=== PATIENT | female | born 1970 | race Caucasian/White ===

== ENCOUNTER 2019-05-02 09:30 | Inpatient (IN) | payer OTHER ==
[~2019-05-02] VITALS: Ht 154.9 cm; Wt 122.5 kg
[~2019-05-02 09:30] MED LIST: ASPIRIN81 M1 PO; CALCIO PO; CENTRUM SILVER1 EAC2 PO; INTEGRA CAPSUL1 EACH PO; LEVSIN/SL0.125 MG SL; NEURIN SL; PRILOSEC20 MG PO; ZINC LOZENGES1 EACH PO
[2019-05-07] MEDS ORDERED: ABANEU-SL TABL1 EACH SL (09:15)
[2019-05-07] MEDS ORDERED: CALCIUM500 M2 (09:19)
[2019-05-07] MEDS ORDERED: CYANOCOBAL1000 MCG/1 IJ (09:19)
[2019-05-09] MEDS ORDERED: ELIQUIS2.5 MG PO (13:47)
[2019-05-09] MEDS ORDERED: PERCOCET 5-3251 EACH PO (13:47)
[2019-05-09] MEDS ORDERED: DUI500 PO (13:47)
== END 2019-05-09 19:13 | DRG 470 ==
LOC: SURG 05-07 05:39 → O/R 05-07 05:39 → RECOVERY 05-07 09:30 → SURG 05-07 15:52
PROVIDERS: ADMIT Orthopaedic Surgery
PROC: 0MNN0ZZ Release Right Knee Bursa and Ligament, Open Approach (ICD-10-PCS; 2019-05-07)
PROC: 0SRC0JZ Replacement of Right Knee Joint with Synthetic Substitute, Open Approach (ICD-10-PCS; principal; 2019-05-07 09:45)
DX: M17.11 Unilateral primary osteoarthritis, right knee (principal); D62 Acute posthemorrhagic anemia; E66.01 Morbid (severe) obesity due to excess calories; M81.8 Other osteoporosis without current pathological fracture; Z98.84 Bariatric surgery status; Z68.35 Body mass index [BMI] 35.0-35.9, adult

== ENCOUNTER 2025-06-26 07:15 | Inpatient (IN) | payer OTHER ==
[~2025-06-26] VITALS: Ht 157.5 cm; Wt 99.8 kg
[~2025-06-26 07:15] MED LIST changes: +ABANEU-SL TABL1 EACH SL; +CALCIUM500 M2; +CYANOCOBAL1000 MCG/1 IJ; +DUI500 PO; +ELIQUIS2.5 MG PO; +PERCOCET 5-3251 EACH PO
[2025-06-26 08:18] LABS: BASO % 0.5 % (0.1-1.2); EOS # 0.17 (0.04-0.54); EOS % 4.6 % (0.7-7.0); LYMPH # 0.82 (1.18-3.74); LYMPH % 22.4 % (19.3-53.1); MEAN PLATELET VOLUME 13.50 fl (9.4-12.4); MONO # 0.27 (0.24-0.82); MONO % 7.4 % (4.7-12.5); NEUT # 2.37 (1.56-6.13); NEUT % 64.8 % (34.0-71.1); RED CELL DISTRIBUTION WIDTH 14.7 % (11.6-14.4)
[2025-06-26 08:24] VITALS: BP 145/90
[2025-06-26 08:41] LABS: URINE APPEARANCE Cloudy; URINE BILIRRUBIN Negative (NEGATIVE); URINE BLOOD Negative; URINE COLOR Yellow; URINE GLUCOSE Negative (NEGATIVE); URINE KETONE Negative (NEGATIVE); URINE LEUKOCYTE Negative; URINE NITRATE Negative; URINE PROTEIN Negative (NEGATIVE); URINE UROBILINOGEN 1.0 E.U./dl
[2025-06-26 08:43] LABS: URINE BACTERIA 414.0 uL (0.0-1933); URINE EPITHELIAL CELLS 7.3 uL (0.0-38.8); URINE WBC 4.1 uL (0.0-23.2)
[2025-06-26 08:44] LABS: COVID-19 AG NEGATIVE (NEGATIVE)
[2025-06-26 08:53] LABS: INR 0.99
[2025-06-26 08:55] LABS: URINE CAST 0.00 uL (0.0-1.40); URINE RBC 1.3 uL (0.0-20.8)
[2025-06-26 09:39] LABS: ALT/SGPT 27.0 U/L (12-78); AST/SGOT 19.0 U/L (15-37); BILIRUBIN TOTAL 0.5 mg/dL (0.3-1.2); BUN CREA RATIO 37.0 (7.0-25.0); CHOL HDL RATIO 2.2 (0-5.0); CREATININE SERUM 0.52 mg/dL (0.55-1.02); GFR 121.98; GLOBULINA 2.9 G/DL (2.4-3.5); GLUCOSE FASTING 91.0 mg/dL (65-100); HDL 52.0 mg/dl (40-60); LDL 51.0 mg/dl (0-130); OSMOLALITY SERUM 287.0 MOSM/KG (275-295); VLDL 9.0 (0-39)
[2025-06-26 11:23] LABS: RH POSITIVE
[2025-07-01] MEDS ORDERED: VANCOMYCIN HCL 1,000 MG VIAL IR ONE (11:15)
[2025-07-01] MEDS ORDERED: TRANEXAMIC ACID 100MG/1ML (1000MG) AMPUL IV ONE ×2 (11:15)
[2025-07-01] MEDS ORDERED: TRANEXAMIC ACID 100MG/1ML (1000MG) AMPUL ONE (12:33)
[2025-07-01] MEDS ORDERED: ISOPROPYL ALCOHOL 30 ML OUNCE TOP ONE (13:10)
[2025-07-01] MEDS ORDERED: VANCOMYCIN HCL 1,000 MG VIAL ONE (13:24)
[2025-07-01] MEDS ORDERED: KETOROLAC TROMETHAMINE 60 MG VIAL IM ONE (14:13)
[2025-07-01] MEDS ORDERED: POVIDONE-IODINE 118 ML BOTT TOP ONE (14:37)
[2025-07-01] MEDS ORDERED: MORPHINE SULFATE 4 MG/ML VIAL IV ONE ×4 (17:45→20:45)
[2025-07-01] MEDS ORDERED: ONDANSETRON HCL 2 MG/ML VIAL IV PRN (20:15)
[2025-07-01] MEDS ORDERED: SODIUM CHLORIDE 0.45 % 1,000 ML IV SCH (20:15)
[2025-07-01 21:46] VITALS: BP 123/73; O2SAT 96
[2025-07-02] MEDS ORDERED: ACETAMINOPHEN 500 MG GEL..CAP PO SCH
[2025-07-02] MEDS ORDERED: GABAPENTIN 300 MG CAPSULE PO SCH (01:00)
[2025-07-02] MEDS ORDERED: CEFAZOLIN SODIUM 1,000 MG VIAL IV SCH (01:00)
[2025-07-02 01:55] VITALS: BP 153/73; O2SAT 99
[2025-07-02 06:37] LABS: BASO % 0.2 % (0.1-1.2); EOS # 0.01 (0.04-0.54); EOS % 0.2 % (0.7-7.0); LYMPH # 0.44 (1.18-3.74); LYMPH % 7.6 % (19.3-53.1); MEAN PLATELET VOLUME 13.30 fl (9.4-12.4); MONO # 0.39 (0.24-0.82); MONO % 6.7 % (4.7-12.5); NEUT # 4.92 (1.56-6.13); NEUT % 85.0 % (34.0-71.1); RED CELL DISTRIBUTION WIDTH 14.5 % (11.6-14.4)
[2025-07-02] MEDS ORDERED: DUI500 PO (08:20)
[2025-07-02] MEDS ORDERED: ELIQUIS2.5 MG PO (08:20)
[2025-07-02 08:30] VITALS: BP 113/72; O2SAT 98
[2025-07-02] MEDS ORDERED: APIXABAN 2.5 MG TABLET PO SCH (09:00)
[2025-07-02] MEDS ORDERED: SENNOSIDES 1 TAB TABLET PO SCH (09:00)
[2025-07-02 14:31] LABS: COVID-19 AG NEGATIVE (NEGATIVE)
[2025-07-02 17:47] VITALS: BP 125/83; O2SAT 100
[2025-07-03] MEDS ORDERED: IRON FUM,PS/FOLIC ACID/VITC/B3 1 CAP CAPSULE PO SCH (09:00)
== END 2025-07-02 18:06 | DRG 470 ==
LOC: SURH 07-01 07:00 → O/R 07-01 10:18 → SURG 07-01 18:23
PROVIDERS: ADMIT Orthopaedic Surgery; ATTEND Orthopaedic Surgery
PROC: 0QUF0KZ Supplement Left Patella with Nonautologous Tissue Substitute, Open Approach (ICD-10-PCS; 2025-07-01)
PROC: 0QUF0JZ Supplement Left Patella with Synthetic Substitute, Open Approach (ICD-10-PCS; 2025-07-01)
PROC: 0SRD0JZ Replacement of Left Knee Joint with Synthetic Substitute, Open Approach (ICD-10-PCS; principal; 2025-07-01 07:00)
DX: M17.0 Bilateral primary osteoarthritis of knee (principal); D62 Acute posthemorrhagic anemia; M80.00XA Age-related osteoporosis with current pathological fracture, unspecified site, initial encounter for fracture; K91.2 Postsurgical malabsorption, not elsewhere classified; Z68.41 Body mass index [BMI] 40.0-44.9, adult; K29.70 Gastritis, unspecified, without bleeding; R10.9 Unspecified abdominal pain; E66.01 Morbid (severe) obesity due to excess calories